=== PATIENT | female | born 1970 | race Hispanic/Latino ===

== ENCOUNTER 2016-11-30 13:12 | Observation (INO) | payer BC ==
[~2016-11-30] VITALS: Ht 152.4 cm; Wt 84.5 kg
[2016-11-30 14:49] LABS: EOSINOPHIL (%) 6.5 % (0-5); EOSINOPHIL COUNT 0.5 K/uL (0-0.3); HEMATOCRIT 40.6 % (36.0-46.0); IMMATURE GRANULOCYTE (%) 0.3 % (0.0-0.7); IMMATURE GRANULOCYTE COUNT 0.2 K/uL; LYMPHOCYTE COUNT 2.3 K/uL (1.0-2.8); MCH 29.7 PG (29.0-34.0); MCHC 35.7 G/DL (30.0-36.0); MCV 83.2 FL (83-99); MEAN PLAT.VOLUME 9.4 uM^3 (9.5-12.4); MONOCYTE (%) 8.1 % (3-12); MONOCYTE COUNT 0.6 K/uL (0-0.8); NEUTROPHIL (%) 52.8 % (45-76); NEUTROPHIL COUNT 3.8 K/uL (1.8-6.4); PLATELET COUNT 284 K/uL (156-360); RBC DIS.WIDTH-CV 12.3 % (11.8-14.6); RBC DIS.WIDTH-SD 36.8 % (39-53); RED BLOOD COUNT 4.88 M/uL (3.80-5.20); WHITE BLOOD COUNT 7.3 K/uL (4.1-10.2)
[2016-11-30 14:57] LABS: PROTHROMBIN TIME 9.9 (9.2-11.2); PTT 28.6 (25-32)
[2016-11-30 14:59] LABS: CHLORIDE 105 mEq/L (99-109); POTASSIUM 3.7 mEq/L (3.7-5.4); SODIUM 139 mEq/L (136-147)
[2016-11-30 15:01] LABS: GLUCOSE 111 mg/dL (70-99)
[2016-11-30 15:02] LABS: ANION GAP 11 MEQ/L (2-14)
[2016-11-30 15:04] LABS: GFR ESTIMATE (CALCULATED) > 59 mL/min/
[2016-11-30 15:05] LABS: UREA NITROGEN (BUN) 12 mg/dL (9-23)
[2016-11-30 15:09] LABS: TROP-I INTERPRETATION NEGATIVE; TROPONIN-I < 0.01 ng/mL (0.0-0.30)
[2016-11-30 15:24] LABS: BILIRUBIN NEGATIVE; BLOOD NEGATIVE; COLOR YELLOW ((YELLOW)); GLUCOSE (STRIP) NEGATIVE; KETONES NEGATIVE; LEUKOCYTES NEGATIVE; NITRITE NEGATIVE; PROTEIN (STRIP) NEGATIVE; SPECIFIC GRAVITY 1.015 (1.000-1.030); UROBILINOGEN 0.2 MG/DL (0.2-1.0)
[2016-11-30 15:25] LABS: ADD MIUA? NO; UCUL ADDED? NO
[2016-11-30 15:38] LABS: HDL CHOLESTEROL 50 MG/DL (Desirable>=50); LDL CHOLESTEROL 108 mg/dL (Desirable<100); NON-HDL CHOLESTEROL 129 mg/dL (Desirable<160); TOTAL CHOLESTEROL 179 mg/dL (Desirable<200); TRIGLYCERIDES 106 MG/DL (Normal: <150)
[2016-11-30 15:40] LABS: Estimated Average Glucose 120 mg/dL (70-123); HEMOGLOBIN A1c (GLYCOHEMOGLOB) 5.8 % HGB (Below 5.7)
[2016-11-30] MEDS ORDERED: DAILY VITE1 EAC1 PO (17:29)
[2016-11-30 20:55] VITALS: BP 124/75
[2016-12-01 00:05] VITALS: BP 112/56
[2016-12-01 03:59] VITALS: BP 124/81
[2016-12-01 07:08] VITALS: BP 107/60
== END 2016-12-01 14:21 | disposition home or self-care (01) ==
LOC: EME 13:12 → EDOF 19:02 → 5WEST 19:02
DX: R51 Headache (principal); R20.0 Anesthesia of skin; R73.03 Prediabetes; E78.5 Hyperlipidemia, unspecified; Z82.49 Family history of ischemic heart disease and other diseases of the circulatory system; E66.9 Obesity, unspecified; Z68.36 Body mass index [BMI] 36.0-36.9, adult
CPT/HCPCS: 70450; 70496; 70498; 70551; 71020; 80048; 80061; 81003; 83036; 84484; 85025; 85610; 85730; 93005; 99281; 99285; G0378; J1644; J2765; J7040